=== PATIENT | male | born 1990 | race Asian ===

== ENCOUNTER → 2016-11-22 | Outpatient (CLI) | payer OTHER ==
--- NOTE | 2016-11-22 15:58 | DIAGNOSTIC IMAGING REPORT ---
MR ANGIOGRAPHY OF THE [place] NO CONTRAST CLINICAL HISTORY: Exertional headaches COMPARISON STUDY: None. A 3-D [id number] MR angiographic sequence of the [place] was performed. Both the source and projection images were reviewed. There is no evidence of major intracranial branch occlusion. There is no evidence of intracranial stenosis. There are no lesions suspicious for aneurysm. Incidental note is made of a dominant right vertebral artery. There is a hypoplastic right A1 segment. IMPRESSION: 1. Hypoplastic right A1 segment and dominant right vertebral artery 2. Otherwise unremarkable MR angiography of the [place] Electronically signed by: Hari Peck M.D. 11/22/2016 3:57 PM Dictated Date/Time: 11/22/2016 3:43 PM
--- NOTE | 2016-11-22 16:14 | DIAGNOSTIC IMAGING REPORT ---
BRAIN COMBO CLINICAL HISTORY: 26 years-old Male presenting with EXTERNAL HEADACHES, severe headaches while exercising lasting 5-6 days. TECHNIQUE: Multisequence, multiplanar MR imaging of the brain was performed before and after the administration of intravenous contrast. IV contrast: None. COMPARISON: 7.6 mL of Gadavist. FINDINGS: Ventricles and sulci normal in size. Trace mild FLAIR hyperintensity in the occipital sulci likely relates to dependent changes with gyral crowding and is not convincing for subarachnoid hemorrhage. Brain parenchyma normal in appearance with preserved licea-white differentiation. No mass effect or midline shift. No restricted diffusion to suggest acute ischemia. No hemorrhage. No extra-axial fluid collection. T2 skull base flow voids preserved. No abnormal parenchymal enhancement. Bone marrow signal intensity within the calvarium within normal limits. IMPRESSION: 1. No acute intracranial pathology. No abnormal enhancement. Electronically signed by: Derick Contreras M.D. 11/22/2016 4:13 PM Dictated Date/Time: 11/22/2016 3:57 PM
== END | disposition home or self-care (01) ==
LOC: C.MRI 14:44
PROVIDERS: ATTEND Obstetrics & Gynecology
DX: G44.84 Primary exertional headache (principal); I77.89 Other specified disorders of arteries and arterioles